=== PATIENT | male | born 1970 | race Caucasian/White ===

== ENCOUNTER → 2018-10-21 | Outpatient (CLI) | payer MEDICAID, SELFPAY ==
[2018-09-28 13:04] VITALS: BMI 41.0
--- NOTE | 2018-10-21 11:54 | PFT ---
INTRODUCTION: The patient is a 48-year-old male that presents for pulmonary function studies secondary to a diagnosis of shortness of breath. Respiratory therapy reports good patient effort. Bronchodilators were used during testing. INTERPRETATION: Forced expiration spirometry demonstrates the presence of a severe large airways obstructive ventilatory defect. There was a significant response to aerosolized bronchodilators, based upon change noted in FEV1. Body plethysmography was performed and reveals a decreased TLC to 5.84 L, 85% of predicted, indicative of a mild restrictive ventilatory impairment. RV was increased to 134% of predicted, indicative of underlying air trapping. Diffusing capacity by single breath CO is mildly reduced at 72% of predicted. IMPRESSION: Reversible severe mixed ventilatory defect with associated air trapping and mild reduction in diffusing capacity.
== END | disposition home or self-care (01) ==
LOC: PSN 07:38
PROVIDERS: Family Provider Preventive Medicine Occupational Medicine; PCP Preventive Medicine Occupational Medicine; Referring Provider Internal Medicine Critical Care Medicine; Visit Provider Internal Medicine Critical Care Medicine
DX: G47.10 Hypersomnia, unspecified (principal); F17.200 Nicotine dependence, unspecified, uncomplicated
CPT/HCPCS: 94060; 94726; 94729

== ENCOUNTER → 2018-10-31 | Outpatient (CLI) | payer MEDICAID, SELFPAY ==
[2018-09-28 13:04] VITALS: BMI 41.0
== END | disposition home or self-care (01) ==
LOC: SL 21:22
PROVIDERS: Family Provider Preventive Medicine Occupational Medicine; PCP Preventive Medicine Occupational Medicine; Referring Provider Internal Medicine Critical Care Medicine; Visit Provider Internal Medicine Critical Care Medicine
DX: G47.10 Hypersomnia, unspecified (principal); R93.89 Abnormal findings on diagnostic imaging of other specified body structures
CPT/HCPCS: 95811

== ENCOUNTER → 2019-01-24 11:00 | Outpatient (CLI) | payer MEDICAID, SELFPAY ==
[2019-01-10 10:02] VITALS: BMI 40.4
== END ==
PROVIDERS: Family Provider Preventive Medicine Occupational Medicine; PCP Family Medicine; Referring Provider Internal Medicine Critical Care Medicine; Visit Provider Internal Medicine Critical Care Medicine
DX: G47.30 Sleep apnea, unspecified (principal)
CPT/HCPCS: 98960; G0463